=== PATIENT | female | born 1980 | race Caucasian/White ===

== ENCOUNTER 2016-10-06 17:23 | Emergency (ER) | payer OTHER ==
--- NOTE | 2016-10-06 20:09 | ED Physician Chart ---
Chief Complaint/HPI - Patient Information Date Seen:: 10/06/16 Time Seen:: 17:30 Chief Complaint:: Rectal Pain History of Present Illness:: onset x 3 days of rectal pain and hemorrhoids; denies Abdominal Pain, rectal bleeding, A/N/V/D/C, hematochezia, hematemesis, melena; C/P, dyspnea, hemoptysis , fever, chills, weakness, dizziness, or vertigo Allergies:: Allergies Allergy/AdvReac Type Severity Reaction Status Date / Time No Known Allergies Allergy Verified 10/06/16 17:27 Vitals:: Vital Signs - 8 hr 10/06/16 10/06/16 17:28 17:43 Temp 98.3 F 98.3 F HR 65 65 RR 16 16 BP 132/93 132/93 O2 Sat % 99 99 Historian:: Patient Review:: Nurse's Note Reviewed Review of Systems - Review of Systems General/Constitutional: Fever, Chills, No weight loss, No weakness, No diaphoresis, No edema, No loss of appetite Skin: No skin lesions, No rash, No bruising Head: No headache, No light-headedness Eyes: No loss of vision, No pain, No diplopia ENT: No earache, Nasal drainage, No sore throat, No tinnitus Neck: No neck pain, No swelling, No thyromegaly, No stiffness, No mass noted Cardio Vascular: No chest pain, No palpitations, No PND, No orthopnea, No edema Pulmonary: SOB, Cough, No sputum, Wheezing GI: Nausea, Vomiting, Diarrhea, No pain, No melena, No hematochezia, Constipation, No hematemesis G/U: No dysuria, No frequency, No hematuria Stencil Inspector: No vaginal discharge, No abnormal vaginal bleed, No contraction Musculoskeletal: No bone or joint pain, No back pain, No muscle pain Endocrine: No polyuria, No polydipsia Psychiatric: No prior psych history, No depression, No anxiety, No suicidal ideation Hematopoietic: No bruising, No lymphadenopathy Allergic/Immuno: No urticaria, No angioedema Neurological: No syncope, No focal symptoms, No weakness, No paresthesia, No headache, No seizure, No dizziness, No confusion, No vertigo Past Medical History - Past Medical History Past Medical History: Asthma/COPD Family History: HTN Social History: Non Smoker, No Alcohol, No Drug Use, Surgical History: None Psychiatricy History: None Medication: Reviewed Family Medical History - Family Member Mother Living Status: Still Living Other Medical History: no med. prob. Physical Exam - Physical Examination General/Constitutional: Awake, Well-developed, well-nourished, Alert, No distress, GCS 15, Non-toxic appearing, Ambulatory Head: Atraumatic Eyes: Lids, conjuctiva normal, PERRL, EOMI Skin: Nl inspection, No rash, No skin lesions, No ecchymosis, Well hydrated, No lymphadenopathy ENMT: External ears, nose nl, Nasal exam nl, Lips, teeth, gums nl Neck: Nontender, Full ROM w/o pain, No JVD, No nuchal rigidity, No bruit, No mass, No stridor Respiratory: Nl effort/Exclusion, Clear to Auscultation, No Wheeze/Rhonchi/Rales Cardio Vascular: RRR, No murmur, gallop, rubs, NL S1 S2 GI: No tenderness/rebounding/guarding, No organomegaly, No hernia, Normal BS's, Nondistended, No mass/bruits, No McBurney tenderness Other GI comments:: Rectal Exam: + External and Internal Hemorrhoids; no bleeding; Stool is negative for occult blood; no rectal bleeding : No CVA tenderness Extremities: No tenderness or effusion, Full ROM, normal strength in all extremities, No edema, Normal digits & nails Neuro/Psych: Alert/oriented, DTR's symmetric, Normal sensory exam, Normal motor strength, Judgement/insight normal, Mood normal, Normal gait, No focal deficits Misc: normal gait, Normal back, No paraspinal tenderness ED Septic Shock - . Is Septic Shock (SBP<90, OR Lactate>4 mmol\L) present?: No - <6hrs of presentation: Vital Signs: Vital Signs - 8 hr 10/06/16 10/06/16 17:28 17:43 Temp 98.3 F 98.3 F HR 65 65 RR 16 16 BP 132/93 132/93 O2 Sat % 99 99 Reassessment (Disposition) - Reassessment Reassessment Condition:: Improved - Diagnosis Diagnosis:: Rectal Pain; Hemorrhoids - Aftercare/Follow up Instructions Aftercare/Follow-Up Instructions:: Counseled pt regarding lab results/diagnosis & need follow up, Refer to Discharge Instructions, Counseled pt & family regarding lab results/diagnosis & need follow up Medication Prescribed:: Rx: Anusol hc Suppositories: insert one suppository into the rectum tid prn hemorrhoids; Tylenol #3: one tablet po tid prn pain (10); Sitz Baths; High Fiber Diet - Patient Disposition Discharge/Transfer:: RTER prn if existing s/s reoccur and/or get worse and/or any other new s/s occur; ACIs given for all Dx; Refer to Colon-Rectal Surgeon DOMINGO; F/U with PMD in one day or prn; refer to GI Specialist/Spanish Interpreter/Translator DOMINGO; F/ U with PMD in one day or prn; RTER prn if concerned Condition at Disposition:: Stable, Improved ED Discharge Plan - Patient Disposition Instructions: Hemorrhoids, [id number], Sitz Bath, [id number] Additional Instructions: 1. Follow up with your Primary Care provider in 1-2 days. 2. Take medication as prescribed. 3. Continue with warm sitz bath. 4. If symptoms worsen, return to the Emergency Department for further evaluation.
== END 2016-10-06 17:52 | disposition home or self-care (01) ==
LOC: ER 17:23
DX: K64.4 Residual hemorrhoidal skin tags (principal); K64.8 Other hemorrhoids; J44.9 Chronic obstructive pulmonary disease, unspecified; J45.909 Unspecified asthma, uncomplicated